=== PATIENT | female | born 1990 | race Caucasian/White ===

== ENCOUNTER 2023-03-26 13:20 | Emergency (ER) | payer OTHER ==
[~2023-03-26] VITALS: Ht 157.5 cm; Wt 102.3 kg
[2023-03-26 13:29] VITALS: TEMP 99
[2023-03-26] MEDS ORDERED: ALBU4TAB6 PO (13:33)
[2023-03-26] MEDS ORDERED: TOPI200T16 PO (14:10)
[2023-03-26] MEDS ORDERED: MONT-40 PO (14:10)
[2023-03-26] MEDS ORDERED: NAPR-1197 PO (14:10)
[2023-03-26] MEDS ORDERED: DESV25TA PO (14:10)
[2023-03-26] MEDS ORDERED: DOXE25CA3 PO (14:10)
[2023-03-26] MEDS ORDERED: SOLI5TAB6 PO (14:10)
[2023-03-26] MEDS ORDERED: CLON0.1T2 PO (14:10)
[2023-03-26] MEDS ORDERED: ZOLP6.2539 PO (14:10)
[2023-03-26] MEDS ORDERED: FLUT1BLS19 IH (14:10)
[2023-03-26] MEDS ORDERED: ALBUTEROL SULFATE 2.5 MG/0.5 ML NEB SOLUTION NEB ONE (14:15)
[2023-03-26] MEDS ORDERED: DiphenhydrAMINE HCL 50 MG/ML VIAL IVP ONE (14:15)
[2023-03-26] MEDS ORDERED: IPRATROPIUM BROMIDE 0.5 MG/2.5 ML NEB SOLUTION NEB ONE (14:15)
[2023-03-26] MEDS ORDERED: METOCLOPRAMIDE HCL 5 MG/ML 2 ML VIAL IVP ONE (14:15)
[2023-03-26] MEDS ORDERED: SODIUM CHLORIDE 0.9% 1,000 ML IV ONE (14:15)
[2023-03-26] MEDS ORDERED: KETOROLAC TROMETHAMINE 30 MG/ML VIAL IVP ONE (14:15)
[2023-03-26 14:53] VITALS: PULSE 105; RESP 14; O2SAT 97
[2023-03-26 15:09] VITALS: PULSE 95; RESP 27; O2SAT 99
[2023-03-26 17:08] VITALS: BP 135/96; PULSE 88; RESP 18
== END 2023-03-26 17:17 | disposition home or self-care (01) ==
LOC: EMS 13:20
DX: J45.909 Unspecified asthma, uncomplicated (principal); R51.9 Headache, unspecified; Z98.890 Other specified postprocedural states
CPT/HCPCS: 99284; 96374; 96375; 96361; 94640; J1200; J1885; J2765; J7030; J7613